=== PATIENT | female | born 1995 | race Caucasian/White ===

== ENCOUNTER 2022-09-07 01:15 | Emergency (ER) | payer OTHER ==
--- NOTE | 2022-09-07 01:44 | ED Physician Documentation ---
PD HPI ABD PAIN - Stated complaint Stated Complaint: LOWER ABD PX - Chief complaint Chief Complaint: Abd Pain - History obtained from History obtained from: Patient - Additional information Additional information: c/o abdominal pain, gradual onset at approximately 2 PM today while at rest, no specific inciting factors nor circumstances. The pain was initially dull and supraumbilical, but it has been constant, becoming more sharp, and increasingly more noticeable in RLQ. Denies h/o similar symptoms . Does not think she is but recognizes possibility. Denies nausea, vomiting, fever. No abd ominal surgical history. Pain is worse with palpation, improved with rest. Review of Systems Constitutional: denies: Fever, Chills, Sweats Cardiac: reports: Reviewed and negative Respiratory: reports: Reviewed and negative GI: reports: Abdominal Pain, Nausea, Diarrhea. 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 - Past Surgical History Past Surgical History: Yes - Present Medications Home Medications: Ambulatory Orders Medication Instructions Recorded Confirmed No Known Home Medications 09/07/22 09/07/22 - Allergies Allergies/Adverse Reactions: Allergies Allergy/AdvReac Type Severity Reaction Status Date / Time No Known Drug Allergies Allergy Verified 09/07/22 01:25 - Social History Does the pt smoke?: No Smoking Status: Never smoker Does the pt drink ETOH?: No ETOH Use: Liquor Does the pt have substance abuse?: No - Immunizations Immunizations are current?: Yes - POLST Patient has POLST: No PD ED PE NORMAL - Vitals Vital signs reviewed: Yes - General General: Alert and oriented X 3, No acute distress, Well developed/nourished - HEENT HEENT: Moist mucous membranes - Neck Neck: Supple, no meningeal sign - Cardiac Cardiac: RRR, No murmur - Respiratory Respiratory: No respiratory distress, Clear bilaterally - Abdomen Abdomen: Soft, Non distended, Other (mild but diffuse tenderness, with rovsing's sign (palpation of LLQ elicits RLQ tenderness). no rebound nor guarding) - Back Back: No CVA TTP - Derm Derm: Normal color, Warm and dry, No rash Results - Vitals Vitals: Oxygen O2 Source Room air - Labs Labs: Laboratory Tests 09/07/22 09/07/22 09/07/22 01:49 01:49 01:49 WBC 8.7 RBC 4.79 Hgb 13.3 Hct 40.0 MCV 83.5 MCH 27.8 MCHC 33.3 RDW 12.4 Plt Count 344 MPV 9.8 Neut # (Auto) 4.3 Lymph # (Auto) 3.6 H [place] # (Auto) 0.5 Eos # (Auto) 0.1 Baso # (Auto) 0.1 Absolute Nucleated RBC 0.00 Nucleated RBC % 0.0 Sodium 138 Potassium 4.0 Chloride 106 Carbon Dioxide 23 Anion Gap 9.0 BUN 11 Creatinine 0.8 Estimated GFR (MDRD) 88 L Glucose 96 Calcium 9.3 Total Bilirubin 0.4 AST 27 ALT 29 Alkaline Phosphatase 59 Total Protein 7.5 Albumin 4.5 Globulin 3.0 Albumin/Globulin Ratio 1.5 Lipase 37 Urine Color YELLOW Urine Clarity CLEAR Urine pH 6.0 Ur Specific [place] 1.020 Urine Protein NEGATIVE Urine Glucose (UA) NEGATIVE Urine Ketones NEGATIVE Urine Occult Blood NEGATIVE Urine Nitrite NEGATIVE Urine Bilirubin NEGATIVE Urine Urobilinogen 0.2 (NORMAL) Ur Leukocyte Esterase NEGATIVE Ur Microscopic Review NOT INDICATED Urine Culture Comments NOT INDICATED Urine HCG, Qual 09/07/22 01:49 WBC RBC Hgb Hct MCV MCH MCHC RDW Plt Count MPV Neut # (Auto) Lymph # (Auto) [place] # (Auto) Eos # (Auto) Baso # (Auto) Absolute Nucleated RBC Nucleated RBC % Sodium Potassium Chloride Carbon Dioxide Anion Gap BUN Creatinine Estimated GFR (MDRD) Glucose Calcium Total Bilirubin AST ALT Alkaline Phosphatase Total Protein Albumin Globulin Albumin/Globulin Ratio Lipase Urine Color Urine Clarity Urine pH Ur Specific [place] Urine Protein Urine Glucose (UA) Urine Ketones Urine Occult Blood Urine Nitrite Urine Bilirubin Urine Urobilinogen Ur Leukocyte Esterase Ur Microscopic Review Urine Culture Comments Urine HCG, Qual NEGATIVE - Rads (name of study) CT A/P with IV contrast Relevant Findings:: Prelim report reviewed, See rad report PD Medical Decision Making - ED course Complexity details: reviewed results, re-evaluated patient, considered differential, d/w patient ED course: Normal CBC, ER abdominal panel, UA, and her urine HCG is negative. She is given toradol IV and reports good relief of her pain with this medication. CT A/P with IV contrast has not abnormalities including no evidence of appendicitis. At this point, further emergent testing is unlikely to yield a diagnosis or change (expectant) management. Ovarian cyst would be considered, although would expect such a cyst large enough to cause discomfort to be visualized on CT; ruptured cyst would evidence free fluid. Ovarian torsion would be unlikely to resolve with a single dose of IV toradol, and typically would present with substantial painful distress. Results d/w patient. She is encouraged to return if symptoms worsen in any way, and to follow up with PMD , next available appointment. Departure - Departure Disposition: 01 Home, Self Care Clinical Impression: Abdominal pain Condition: Good Instructions: ED Abdominal Pain Female Non-Specific Abdominal Pain Follow-Up: [facility] [Provider Group] Comments: There were no concerning nor diagnostic findings on the blood tests performed tonight. The urine analysis was normal, and your urine test was negative. The CT of your abdomen and pelvis was normal, including no evidence of appendicitis or gallbladder problem or ovarian cyst. As we discussed, further testing might be indicated if your symptoms persist or worsen (such as ultrasound of your gallbladder or a pelvic ultrasound to look for other ovarian problems besides ovarian cyst). I recommend that you contact your primary care provider this morning when their office opens to arrange for next available appointment. Ideally, follow- up/reevaluation within 48 hours. Certainly, if your symptoms worsen, or if you develop new/concerning signs/symptoms (such as fever, blood in the stool, worsening abdominal pain), you can return to the emergency department for reevaluation. Forms: Activity restrictions Discharge Date/Time: 09/07/22 05:49
[2022-09-07 01:58] LABS: BASOPHILS # (AUTO) 0.1 10^3/uL (0.0-0.1); BASOPHILS % (AUTO) 0.9 %; EOSINOPHILS # (AUTO) 0.1 10^3/uL (0.0-0.7); EOSINOPHILS % (AUTO) 1.5 %; HGB - HEMOGLOBIN 13.3 g/dL (12.0-16.0); LYMPHOCYTES # (AUTO) 3.6 10^3/uL (1.5-3.5); LYMPHOCYTES % (AUTO) 41.4 %; MEAN CORPUSCULAR HEMOGLOBIN 27.8 pg (27.0-31.0); MEAN CORPUSCULAR HGB CONC 33.3 g/dL (32.0-36.0); MEAN CORPUSCULAR VOLUME 83.5 fL (81.0-99.0); MEAN PLATELET VOLUME 9.8 fL (7.9-10.8); MONOCYTES # (AUTO) 0.5 10^3/uL (0.0-1.0); MONOCYTES % (AUTO) 5.9 %; NEUTROPHILS # (AUTO) 4.3 10^3/uL (1.5-6.6); NEUTROPHILS % (AUTO) 50.1 %; PLT - PLATELET COUNT 344 10^3/uL (130-450); RED BLOOD COUNT 4.79 10^6/uL (4.20-5.40); RED CELL DISTRIBUTION WIDTH 12.4 % (12.0-15.0); WHITE BLOOD COUNT 8.7 x10^3/uL (4.8-10.8)
[2022-09-07] MEDS ORDERED: KETOROLAC 30 MG/ML VIAL IVP STA (02:08)
[2022-09-07 02:09] LABS: BILIRUBIN,URINE NEGATIVE (NEGATIVE); GLUCOSE, URINE (UA) NEGATIVE (NEGATIVE); KETONES,URINE (UA) NEGATIVE (NEGATIVE); LEUKOCYTE ESTERASE, URINE NEGATIVE (NEGATIVE); NITRITE,URINE NEGATIVE (NEGATIVE); OCCULT BLOOD,URINE NEGATIVE (NEGATIVE); PROTEIN,URINE NEGATIVE (NEGATIVE); UROBILINOGEN,URINE 0.2 (NORMAL) E.U./dL (NORMAL)
[2022-09-07 02:14] LABS: ALBUMIN 4.5 g/dL (3.2-5.5); ALBUMIN/GLOBULIN RATIO 1.5 (1.0-2.2); BILIRUBIN,TOTAL 0.4 mg/dL (0.2-1.0); CALCIUM 9.3 mg/dL (8.5-10.3); CLARITY,URINE CLEAR (CLEAR); CREATININE 0.8 mg/dL (0.4-1.0); HCG UR QUAL NEGATIVE; TOTAL PROTEIN 7.5 g/dL (6.7-8.2)
[2022-09-07] MEDS ORDERED: iohexoL-300 100 ML VIAL ONE (02:21)
[2022-09-07] MEDS ORDERED: iohexoL-300 100 ML VIAL IVP ONE (02:50)
[2022-09-07 05:48] VITALS: BP 113/72
--- NOTE | 2022-09-07 09:39 | CT Report ---
PROCEDURE: ABDOMEN/PELVIS W INDICATIONS: abdominal pain CONTRAST: 100 ML OMNI 300 TECHNIQUE: After the administration of intravenous contrast, 5 mm thick sections acquired from the diaphragms to the symphysis. 5 mm thick coronal and sagittal reformats were acquired. For radiation dose reducti on, the following was used: automated exposure control, adjustment of mA and/or kV according to xavi ent size. COMPARISON: None. FINDINGS: Image quality: Excellent. ABDOMEN: Lung bases: Mild dependent atelectasis at lung bases. Heart size is normal. Tiny hiatal hernia. Solid organs: Liver and spleen are normal in size and enhancement. Mild hepatic steatosis. Gallblad berry is normal. Biliary system is non dilated. Pancreas enhances normally. No adrenal nodules. Kid neys demonstrate normal size and enhancement, without hydronephrosis. Peritoneum and bowel: Bowel loops demonstrate normal wall thickness and caliber. Appendix is normal . No free fluid or air. Nodes and vessels: No retroperitoneal or mesenteric adenopathy by size criteria. Aorta and inferior vena cava are normal in size. Miscellaneous: No ventral hernias. PELVIS: Genitourinary: Bladder wall thickness is normal. Uterus and ovaries are grossly normal. There is a small amount of free fluid in the cul-de-sac. Miscellaneous: No inguinal hernias or adenopathy. Bones: No suspicious bony lesions. No vertebral body compression fractures. IMPRESSION: 1. No definitive acute intraabdominal or pelvic process. 2. There is a small amount of free fluid in the cul-de-sac, most likely physiological. Uterus and ova bonita are grossly normal. 3. Normal appendix. 4. Mild hepatic steatosis. No significant discrepancy with the preliminary interpretation. Reviewed by: Emily Beckwith MD on 09/07/2022 9:38 AM PDT Approved by: Emily Beckwith MD on 09/07/2022 9:38 AM PDT Station ID: [id number]
== END 2022-09-07 05:49 | disposition home or self-care (01) ==
LOC: ED 01:15
DX: R10.9 Unspecified abdominal pain (principal)
CPT/HCPCS: 36415; 74177; 80053; 81003; 81025; 83690; 85025; 96374; 99284; Q9967; 81001; 87086

== ENCOUNTER 2022-09-30 18:20 | Emergency (ER) | payer OTHER ==
--- NOTE | 2022-09-30 18:44 | ED Physician Documentation ---
PD HPI FEMALE - Stated complaint Stated Complaint: FEMALE - Chief complaint Chief Complaint: Abd Pain - History obtained from History obtained from: Patient - Additional information Additional information: 26-year-old G1, P0 at 5 weeks 1 day by LMP presents with vaginal bleeding that is painless starting within the last hour or so. She noticed it after urinating mostly on the toilet tissue. 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 - Past Surgical History Past Surgical History: Yes - Present Medications Home Medications: Ambulatory Orders Medication Instructions Recorded Confirmed No Known Home Medications 09/07/22 09/30/22 - Allergies Allergies/Adverse Reactions: Allergies Allergy/AdvReac Type Severity Reaction Status Date / Time No Known Drug Allergies Allergy Verified 09/30/22 18:23 - Social History Does the pt smoke?: No Smoking Status: Never smoker Does the pt drink ETOH?: No Does the pt have substance abuse?: No - Immunizations Immunizations are current?: Yes - POLST Patient has POLST: No PD ED PE NORMAL - Vitals Vital signs reviewed: Yes - General General: Alert and oriented X 3, No acute distress - Abdomen Abdomen: Normal bowel sounds, Soft, Non tender, Other (I do not appreciate an IUP on bedside ultrasound. No free fluid.) - Neuro Neuro: Alert and oriented X 3, Normal speech Results - Vitals Vitals: Vital Signs - 24 hr 09/30/22 18:22 Temperature 36.6 C Heart Rate 87 Respiratory 16 Rate Blood Pressure 134/83 H O2 Saturation 100 Oxygen O2 Source Room air - Labs Labs: Laboratory Tests 09/30/22 09/30/22 09/30/22 18:48 18:48 18:48 WBC 6.5 RBC 4.39 Hgb 12.4 Hct 37.6 MCV 85.6 MCH 28.2 MCHC 33.0 RDW 13.2 Plt Count 282 MPV 9.7 Neut # (Auto) 3.7 Lymph # (Auto) 2.1 [place] # (Auto) 0.5 Eos # (Auto) 0.1 Baso # (Auto) 0.1 Absolute Nucleated RBC 0.00 Nucleated RBC % 0.0 Sodium 136 Potassium 3.4 L Chloride 104 Carbon Dioxide 24 Anion Gap 8.0 BUN 8 Creatinine 0.7 Estimated GFR (MDRD) 103 Glucose 89 Calcium 8.9 HCG, Quant Blood Type A POSITIVE 09/30/22 18:48 WBC RBC Hgb Hct MCV MCH MCHC RDW Plt Count MPV Neut # (Auto) Lymph # (Auto) [place] # (Auto) Eos # (Auto) Baso # (Auto) Absolute Nucleated RBC Nucleated RBC % Sodium Potassium Chloride Carbon Dioxide Anion Gap BUN Creatinine Estimated GFR (MDRD) Glucose Calcium HCG, Quant 29830.00 Blood Type PD Medical Decision Making - ED course ED course: 26-year-old woman presents with bleeding in early . CBC is normal. CMP normal. Beta hCG 26175. Ultrasound per the maintenance apprentice is nondiagnostic. She does have what looks like a gestational sac without pole. Discussed with patient that the viability of her is unknown. Departure - Departure Disposition: 01 Home, Self Care Clinical Impression: Threatened Condition: Good Record reviewed to determine appropriate education?: Yes Instructions: ED Miscarriage Poss Comments: You were seen today for concerns about bleeding in early . Your ultrasound showed something in the uterus, but it is too early to tell if it is a viable or not. Your beta hCG was 96390. You should have the beta- hCG repeated in 2 days, we would expect it to roughly double in a normal . You should keep the appointment for the ultrasound you are already having next week which would be an appropriate timeframe to have that rechecked. Return if worse.
[2022-09-30 18:59] LABS: BASOPHILS # (AUTO) 0.1 10^3/uL (0.0-0.1); BASOPHILS % (AUTO) 0.8 %; EOSINOPHILS # (AUTO) 0.1 10^3/uL (0.0-0.7); EOSINOPHILS % (AUTO) 1.5 %; HCT - HEMATOCRIT 37.6 % (37.0-47.0); HGB - HEMOGLOBIN 12.4 g/dL (12.0-16.0); LYMPHOCYTES # (AUTO) 2.1 10^3/uL (1.5-3.5); LYMPHOCYTES % (AUTO) 32.7 %; MEAN CORPUSCULAR HEMOGLOBIN 28.2 pg (27.0-31.0); MEAN CORPUSCULAR VOLUME 85.6 fL (81.0-99.0); MEAN PLATELET VOLUME 9.7 fL (7.9-10.8); MONOCYTES # (AUTO) 0.5 10^3/uL (0.0-1.0); NEUTROPHILS # (AUTO) 3.7 10^3/uL (1.5-6.6); NEUTROPHILS % (AUTO) 56.7 %; PLT - PLATELET COUNT 282 10^3/uL (130-450); RED BLOOD COUNT 4.39 10^6/uL (4.20-5.40); RED CELL DISTRIBUTION WIDTH 13.2 % (12.0-15.0); WHITE BLOOD COUNT 6.5 x10^3/uL (4.8-10.8)
[2022-09-30 19:07] LABS: CALCIUM 8.9 mg/dL (8.5-10.3); CREATININE 0.7 mg/dL (0.4-1.0); POTASSIUM 3.4 mmol/L (3.5-5.0)
--- NOTE | 2022-09-30 19:50 | Ultrasound Report ---
PROCEDURE: OB First Trimester w/TV INDICATIONS: Vaginal bleeding in OUTSIDE/PRIOR DATING DATA: Last menstrual period (LMP): 08/25/2022.. LMP-based estimated date of delivery (DENIS): 06/01/2023. TECHNIQUE: Real-time scanning was performed of the fetus and maternal pelvic organs, with image documentation. Endovaginal scanning was also performed to better visualize the fetus and maternal ovaries. COMPARISON: CT abdomen and pelvis, 09/07/2022. FINDINGS: There is a possible intrauterine gestational sac appears irregular. No pole. Embryo: n.a. Heart rate: n.a Measurement variability in dating: +/- 4 weeks by LMP, +/- 7 days by mean sac diameter (use before 6 weeks gestation if crown-rump length not able to be measured), +/- 5 days by crown-rump length (6-12 weeks gestation). Maternal organs: There are 2 thick-walled cysts in right ovary. IMPRESSION: 1. Irregular sac in uterine cavity. No pole is identified. Differential diagnoses are early IUP versus first trimester failure. Recommend correlation with quantitative serum beta hCG and follow-up imaging as clinically indicated. 2. 2 thick-walled cysts in the right ovary, possibly corpus luteum cysts. Ectopic , however, is not excluded at this time. Please continue clinical follow-up and imaging follow-up as needed. Reviewed by: Emily Beckwith MD on 09/30/2022 7:48 PM PDT Approved by: Emily Beckwith MD on 09/30/2022 7:48 PM PDT Station ID: [id number]
[2022-09-30 20:01] VITALS: BP 103/64
== END 2022-09-30 20:00 | disposition home or self-care (01) ==
LOC: ED 18:20
DX: O20.0 Threatened abortion (principal); Z3A.01 Less than 8 weeks gestation of pregnancy
CPT/HCPCS: 36415; 80048; 84702; 85025; 86900; 86901; 99283; 99284

== ENCOUNTER 2022-10-02 14:15 | Emergency (ER) | payer OTHER ==
[2022-10-02 14:27] VITALS: BP 126/64
--- NOTE | 2022-10-02 15:04 | ED Physician Documentation ---
History of Present Illness - Stated complaint Stated Complaint: RECHECK - Chief complaint Chief Complaint: General - History obtained from History obtained from: Patient - Additonal information Additional information: She presents for recheck of beta-hCG. She was here 2 days ago with vaginal bleeding in early with a nondiagnostic ultrasound showing something in the endometrium, but viability uncertain. At that time her beta-hCG was 83460. Bleeding has stopped. No cramping. 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 - Past Surgical History Past Surgical History: Yes - Present Medications Home Medications: Ambulatory Orders Medication Instructions Recorded Confirmed No Known Home Medications 09/07/22 10/02/22 - Allergies Allergies/Adverse Reactions: Allergies Allergy/AdvReac Type Severity Reaction Status Date / Time No Known Drug Allergies Allergy Verified 09/30/22 18:23 - Social History Does the pt smoke?: No Smoking Status: Never smoker Does the pt drink ETOH?: No Does the pt have substance abuse?: No - Immunizations Immunizations are current?: Yes - POLST Patient has POLST: No PD ED PE NORMAL - Vitals Vital signs reviewed: Yes - General General: Alert and oriented X 3, No acute distress - Abdomen Abdomen: Non tender - Neuro Neuro: Alert and oriented X 3, Normal speech Results - Vitals Vitals: Vital Signs - 24 hr 10/02/22 14:26 Temperature 36.7 C Heart Rate 77 Respiratory 16 Rate Blood Pressure 126/64 O2 Saturation 98 Oxygen O2 Source Room air - Labs Labs: Laboratory Tests 10/02/22 14:41 HCG, Quant 5150.00 Departure - Departure Disposition: 01 Home, Self Care Clinical Impression: Threatened Condition: Good Record reviewed to determine appropriate education?: Yes Instructions: ED Miscarriage Poss Comments: As discussed, unfortunately your beta-hCG went from 90125 2 days ago down to 5150 today. This is most consistent with having already spontaneously miscarried. You should still follow-up with your OB next week for further evaluation and return if worse. Forms: Activity restrictions
== END 2022-10-02 15:57 | disposition home or self-care (01) ==
LOC: ED 14:15
DX: O20.0 Threatened abortion (principal); Z3A.00 Weeks of gestation of pregnancy not specified
CPT/HCPCS: 36415; 84702; 99282; 99283

== ENCOUNTER 2022-10-07 14:28 | Outpatient (CLI) | payer OTHER | END 2022-10-07 14:29 | disposition home or self-care (01) | LOC: LAB 14:28 | PROVIDERS: ATTEND Obstetrics & Gynecology | DX: O20.0 Threatened abortion (principal) | CPT/HCPCS: 36415; 84702 ==

== ENCOUNTER 2022-10-09 15:01 | Outpatient (CLI) | payer OTHER ==
--- NOTE | 2022-10-09 23:09 | Ultrasound Report ---
PROCEDURE: OB First Trimester w/TV INDICATIONS: THREATENED ABROTION OUTSIDE/PRIOR DATING DATA: Last menstrual period (LMP): 08/25/2022. LMP-based estimated date of delivery (DENIS): 06/01/2023. TECHNIQUE: Real-time scanning was performed of the fetus and maternal pelvic organs, with image documentation. Endovaginal scanning was also performed to better visualize the fetus and maternal ovaries. COMPARISON: 09/30/2022 FINDINGS: Unchanged heterogeneous endometrium measuring 3.2 x 1.9 x 2.9 cm. No discrete gestational sac. There is only minimal fluid. Maternal organs: Resolving right ovarian cyst. This measures up to 3.5 cm. There is free fluid in the adnexa. IMPRESSION: No pole is identified. No discrete gestational sac, only thin fluid is present. Findings are hi ghly suspicious, but not diagnostic of failure per SRU guidelines. Enlarged heterogeneous e ndometrium is present. Recommend continued ultrasound and laboratory follow up. A small amount of jet e fluid is seen in the adnexa. Reviewed by: Yoel Perez MD on 10/09/2022 11:07 PM PDT Approved by: Yoel Perez MD on 10/09/2022 11:07 PM PDT Station ID: [id number]
== END 2022-10-09 15:02 | disposition home or self-care (01) ==
LOC: DI 15:01
PROVIDERS: ATTEND Obstetrics & Gynecology
DX: O20.0 Threatened abortion (principal)

== ENCOUNTER 2023-08-04 10:44 | Emergency (ER) | payer OTHER ==
--- NOTE | 2023-08-04 11:34 | ED Physician Documentation ---
PD HPI ABD PAIN - Stated complaint Stated Complaint: FALL - Chief complaint Chief Complaint: Trauma Abd - History obtained from History obtained from: Patient - Additional information Additional information: 27-year-old woman who is 17 weeks with twins. Yesterday at about 1 PM she fell off a chair and hit her abdomen on a countertop. She has mild soreness there. No bleeding, cramping, nor fluid loss. No other injuries. 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 : None HEENT: Other Psych: None Musculoskeletal: None Derm: None - Past Surgical History Past Surgical History: Yes - Present Medications Home Medications: Ambulatory Orders Medication Instructions Recorded Confirmed Ondansetron Odt [Zofran Odt] 4 mg TL Q6H PRN 08/04/23 08/04/23 - Allergies Allergies/Adverse Reactions: Allergies Allergy/AdvReac Type Severity Reaction Status Date / Time No Known Drug Allergies Allergy Verified 08/04/23 10:51 - Social History Does the pt smoke?: No Smoking Status: Former smoker Does the pt drink ETOH?: No Does the pt have substance abuse?: No - Immunizations Immunizations are current?: Yes - POLST Patient has POLST: No PD ED PE NORMAL - Vitals Vital signs reviewed: Yes - General General: Alert and oriented X 3, No acute distress - Abdomen Abdomen: Normal bowel sounds, Soft, Non tender, Other (She has twin intrauterine pregnancies, both with motion, right fetus has a heart rate of 140 and left fetus heart rate 160. No free fluid.) - Neuro Neuro: Alert and oriented X 3, Normal speech Eye Opening: Spontaneous Motor: Obeys Commands Verbal: Oriented GCS Score: 15 - Psych Psych: Normal mood, Normal affect Results - Vitals Vitals: Vital Signs - 24 hr 08/04/23 10:53 Temperature 36.4 C L Heart Rate 86 Respiratory 18 Rate Blood Pressure 138/79 H O2 Saturation 100 Oxygen O2 Source Room air PD Medical Decision Making - ED course ED course: 27-year-old woman with an abdominal wall contusion and reassuring bedside ultrasound. She has a nonviable stage of . Monitoring of her blood pressure was advised given it was 138/79 here but she is anxious. Departure - Departure Disposition: 01 Home, Self Care Clinical Impression: Contusion of abdominal wall Qualifiers: Encounter type: initial encounter Qualified Code(s): S30.1XXA - Contusion of abdominal wall, initial encounter Qualifiers: Weeks of gestation: 17 weeks Qualified Code(s): Z3A.17 - 17 weeks gestation of Condition: Good Record reviewed to determine appropriate education?: Yes Instructions: ED Contusion Soft Tissue Comments: Both babies are looking good on ultrasound today, return if you worsen, develop cramping, bleeding, or fluid loss. Follow-up with your CASING WORKER within the week. Your blood pressure was on the high side here and deserves close monitoring with your OB.
[2023-08-04 12:31] VITALS: BP 128/74; O2SAT 100
== END 2023-08-04 12:18 | disposition home or self-care (01) ==
LOC: ED 10:44
DX: O9A.212 Injury, poisoning and certain other consequences of external causes complicating pregnancy, second trimester (principal); S30.1XXA Contusion of abdominal wall, initial encounter; W07.XXXA Fall from chair, initial encounter; Z3A.17 17 weeks gestation of pregnancy; Z87.891 Personal history of nicotine dependence
CPT/HCPCS: 99281; 99283